=== PATIENT | female | born 1935 | race Caucasian/White ===

== ENCOUNTER 2016-10-03 13:59 | Emergency (ER) | payer OTHER ==
[~2016-10-03] VITALS: Ht 162.6 cm; Wt 68.0 kg
[~2016-10-03 13:59] MED LIST: APIX5T PO; B-12500 MC1 PO; CALTRATE 600 +1 EACH PO; CLOBETASOL PROP0.05% TOP; CRANBERRY250 M1 PO; DEXILANT60 M1 PO; DEXILANT60 MG PO; LISINOPRIL-HCT1 EAC1 PO; MAGOX 400400 MG PO; METOPROLOL TART25 M1 PO; MIRALAX17 GM PO; MULTAQ 400MG400 MG PO; PRAVACHOL40 M1 PO; [UNRECOGNIZED DRUG - OTHER] PO
[2016-10-03] MEDS ORDERED: FUROSEMIDE20 M1 PO (14:34)
[2016-10-03] MEDS ORDERED: XARELTO10 M1 PO (14:35)
[2016-10-03] MEDS ORDERED: MULTAQ400 M1 PO (14:37)
[2016-10-03] MEDS ORDERED: METOPROLOL TART25 M1 PO (14:38)
[2016-10-03] MEDS ORDERED: LISINOPRIL10 M1 PO (14:40)
--- NOTE | 2016-10-03 14:57 | ED GENERAL ADULT ---
History of Present Illness General Chief Complaint: Dizziness Stated Complaint: LIGHT-HEADED, INDIGESTION Source: patient Exam Limitations: no limitations Vital Signs & Intake/Output Vital Signs & Intake/Output Vital Signs Date Time Temp Pulse Resp B/P B/P Pulse O2 O2 Flow FiO2 Mean Ox Delivery Rate 10/03 1812 154/78 10/03 1752 88 18 198/83 96 Room Air 10/03 1615 97.8 56 18 165/73 96 Room Air 10/03 1414 98.5 61 18 115/84 98 Room Air Allergies Coded Allergies: Sulfa (Sulfonamide Antibiotics) (ITCHING 07/01/15) epinephrine (INCREASED HR 07/01/15) latex (UNKNOWN 07/01/15) Reconcile Medications Calcium Carbonate/Vitamin D3 (Caltrate 600 + D Tablet) 600 MG-800 TABLET 1 TAB PO DAILY SUPPLEMENT (Reported) Cranberry Extract (Cranberry) 250 MG CAPSULE 1 CAP PO DAILY SUPPLEMENT ( Reported) Cyanocobalamin (Vitamin B-12) (B-12) 500 MCG TABLET 1 TAB PO DAILY VITAMIN SUPPORT (Reported) Dexlansoprazole (Dexilant) 60 MG CAP.BP 1 CAP PO DAILY ACID REFLUX ( Reported) Dronedarone HCl (Multaq) 400 MG TABLET 1 TAB PO BID HEART (Reported) Furosemide 20 MG TABLET 0.5 TAB PO Sunday WATER RETENTION ( Reported) Lisinopril 10 MG TABLET 1 TAB PO BID HEART (Reported) Magnesium Oxide (Magox 400) 400 MG TABLET 1 TAB PO DAILY SUPPLEMENT (Reported ) Metoprolol Tartrate 25 MG TABLET 1 TAB PO DAILY BP (Reported) Metoprolol Tartrate 25 MG TABLET 0.5 TAB PO QPM BP (Reported) Pravastatin Sodium (Pravachol) 40 MG TABLET 1 TAB PO DAILY CHOLESTEROL ( Reported) Rivaroxaban (Xarelto) (Unknown Strength) TABLET (Unknown Dose) PO DAILY BLOOD THINNER (Reported) Triage Note: 81 Y/O FEMALE C/O FEELING LIGHTHEADED TODAY; ALSO C/O "TIGHTNESS IN MY THROAT". STATES SHE HAS HX GASTRITIS AND ATTRIBUTED SYMPTOMS TO THAT OR TO NOT HAVING ENOUGH WATER TODAY. DENIES FEELING SOB. DENIES N/V/D. NO DIAPHORESIS NOTED. EKG COMPLETED AND SIGNED BY MD GOYAL TAKEN TO ROOM FOR EVAL Triage Nurses Notes Reviewed? yes HPI: 81-year-old female with a history of A. fib (on 020), hypertension, hyperlipidemia presenting with lightheadedness 24 hours. Reports lightheadedness both with sitting and standing, does not feel that lightheadedness is any worse with positional changes. Denies chest pain, shortness of breath, nausea, vomiting, diaphoresis, pain to the arm/jaw/back. Patient also complains of a foreign body throat sensation that she states frequently occurs after she takes her morning medications. Reports that she has always been able to eat breakfast after she takes her morning medications, and the sensation is sometimes relieved by Maalox. (EULALIA MILLAN,CHARLES) Past History Travel History Traveled to [place] past 21 day No Medical History Any Pertinent Medical History? 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 No (EULALIA MILLAN,CHARLES) Review of Systems Review of Systems Constitutional: Reports: no symptoms. Respiratory: Reports: no symptoms. Cardiovascular: Reports: no symptoms. GI: Reports: no symptoms. Genitourinary: Reports: no symptoms. Musculoskeletal: Reports: no symptoms. Neurological/Psychological: Reports: other (light headedness). Denies: headache, numbness, paresthesia. (CHARLES ESTEBAN PA-C) Physical Exam Physical Exam General Appearance: well developed/nourished, no apparent distress, alert, awake , comfortable Head: atraumatic Ears, Nose, Throat: normal pharynx Neck: normal inspection, supple Respiratory: normal breath sounds, lungs clear Cardiovascular: normal peripheral pulses, irregular rhythm with rate in 90's Neurologic/Psych: awake, alert, oriented x 3, normal mood/affect Skin: intact, normal color, warm/dry Core Measures ACS in differential dx? Yes CVA/TIA Diagnosis: No Severe Sepsis Present: No Septic Shock Present: No (EULALIA MILLAN,CHARLES) Progress Differential Diagnoses I considered the following diagnoses in my evaluation of the patient: [Light headedness: VT versus angina versus A. fib versus electrolyte abnormality versus hypovolemia versus anemia. FB throat sensation: Pill esophagitis versus foreign body versus food bolus impaction versus GERD.] Plan of Care: Orders Procedure Date/time Status EKG 10/03 1637 Active CULTURE,URINE 10/03 1455 Active URINALYSIS 10/03 145 Complete TROPONIN LEVEL 10/03 1455 Complete LIPASE 10/03 1455 Complete COMPREHENSIVE METABOLIC PANEL 10/03 1455 Complete CBC WITHOUT DIFFERENTIAL 10/03 145 Complete EKG 10/03 1404 Active Laboratory Tests 10/03/16 1519: Anion Gap 9, Estimated GFR > 60, BUN/Creatinine Ratio 21.4, Glucose 84, Calcium 10.0, Total Bilirubin 0.4, AST 25, ALT 30, Alkaline Phosphatase 93, Troponin I < 0.01, Total Protein 7.3, Albumin 4.3, Globulin 3.0, Albumin/Globulin Ratio 1.4, Lipase 172, CBC w Diff NO MAN DIFF REQ, RBC 4.64, MCV 86.5, MCH 29.0, RDW 13.1, MPV 8.5, Gran % 54.5, Lymphocytes % 31.5, Monocytes % 10.6 H, Eosinophils % 2.9 , Basophils % 0.5, Absolute Granulocytes 4.8, Absolute Lymphocytes 2.8, Absolute Monocytes 0.9 H, Absolute Eosinophils 0.3, Absolute Basophils 0, PUBS MCHC 33.5 10/03/16 1502: Urine Color STRAW, Urine Clarity CLEAR, Urine pH 7.0, Ur Specific [place] <= 1.005, Urine Protein NEG, Urine Ketones NEG, Urine Nitrite NEG, Urine Bilirubin NEG, Urine Urobilinogen 0.2, Ur Leukocyte Esterase NEG, Ur Microscopic EXAM NOT REQUIRED, Urine Hemoglobin NEG, Urine Glucose NEG Microbiology 10/03 1502 URINE ROUT: Urine Culture - RECD Foreign body throat sensation seems highly consistent with a pill esophagitis as the sensation always occurs after the patient takes her morning medications, and an gradually resolves within a few hours. Patient's foreign body throat sensation is completely resolved after Maalox. Initial EKG showed an A. fib rhythm with a rate of 98, troponin negative. All other labs within normal limits. Repeat EKG shows sinus rhythm with a rate of 56. Patient has remained on the quality assurance monitor throughout her ED visit and noted to be in sinus rhythm the remainder of the visit. Spoke with covering provider for and he recommended increasing patient's metoprolol to 25 mg twice a day, and that the patient should make an appointment in the morning to discuss switching her mild tach to a different agent. (CHARLES ESTEBAN PA-C) Initial ED EKG: normal axis, rhythm (a-fib), rate (98), no ST T wave changes, repeat EKG shows normal sinus rhythm with a rate of 56 (CHARLES ESTEBAN PA-C) Departure Departure Disposition: HOME OR SELF CARE Condition: Stable Clinical Impression Primary Impression: Light headedness Secondary Impressions: Foreign body sensation in throat Referrals: MARLO PASTRANA,ARCADIO Marshall (PCP/Family) Additional Instructions: Increase her metoprolol dosage to 25 mg twice a day beginning today. Call Dr.D' Sheth's office tomorrow morning to make an appointment for reevaluation, and to discuss possibly switching your multaq to different medication. Return to the ED for any normal worsening symptoms. Departure Forms: Customer Survey General Discharge Information (CHARLES ESTEBAN PA-C) PA/CLUTCH OPERATOR Co-Sign Statement Statement: ED Attending supervision documentation- [X] I saw and evaluated the patient. I have also reviewed all the pertinent lab results and diagnostic results. I agree with the findings and the plan of care as documented in the PA's/CLUTCH OPERATOR's documentation. [X] I have reviewed the ED Record and agree with the PA's/CLUTCH OPERATOR's documentation. [] Additions or exceptions (if any) to the PAs/CLUTCH OPERATOR's note and plan are summarized below: [] (JAY JAY PASTRANA,MEGHNA) Critical Care Note Critical Care Note Critical Care Time: non-applicable (CHARLES ESTEBAN PA-C)
[2016-10-03 15:32] LABS: ABSOLUTE BASOPHIL COUNT 0 /CUMM (0.0-0.2); ABSOLUTE EOSINOPHIL COUNT 0.3 /CUMM (0.0-0.7); ABSOLUTE GRANULOCYTE CT 4.8 /CUMM (1.4-6.5); ABSOLUTE LYMPH COUNT 2.8 /CUMM (1.2-3.4); ABSOLUTE MONOCYTE COUNT 0.9 /CUMM (0.10-0.60); BASOPHIL % 0.5 % (0.0-2.0); EOSINOPHIL % 2.9 % (0-5); GRANULOCYTE % 54.5 % (42.2-75.2); HEMATOCRIT 40.2 % (37-47); MEAN CORPUSCULAR HGB CONC 33.5 G/DL (33.0-37.0); MEAN CORPUSCULAR VOLUME 86.5 FL (81.0-99.0); MEAN PLATELET VOLUME 8.5 FL (7.4-10.4); PLATELET COUNT 299 /CUMM (130-400); RBC DISTRIBUTION WIDTH 13.1 % (11.5-14.5); RED BLOOD CELL CT 4.64 /CUMM (4.20-5.40); WHITE BLOOD CELL COUNT 8.9 /CUMM (4.8-10.8)
[2016-10-03 18:12] VITALS: BP 154/78
== END 2016-10-03 18:14 ==
LOC: ERH 13:59
PROVIDERS: Physician Assistant
DX: R42 Dizziness and giddiness (principal); R09.89 Other specified symptoms and signs involving the circulatory and respiratory systems
CPT/HCPCS: 81003; 87086; 93005; 93010